=== PATIENT | female | born 1985 | race American Indian/Alaskan Native ===

== ENCOUNTER 2017-01-24 18:05 | Emergency (ER) | payer MEDICAID ==
[2017-01-24 19:23] LABS: Basophils % (Auto) 0.5 % (0.0-1.8); Eosinophils % (Auto) 1.7 % (0.0-4.3); Hematocrit 41.7 % (30.3-42.9); Hemoglobin 13.9 gm/dl (10.1-14.3); Mean Corpuscular HGB Conc 33 % (30-34); Mean Corpuscular Hemoglobin 30 pg (28-32); Mean Corpuscular Volume 91 fl (79-97); Platelet Count 284 K/mm3 (140-440); Red Blood Count 4.57 M/mm3 (3.65-5.03); Red Cell Distribution Width 13.9 % (13.2-15.2); White Blood Count 12.3 K/mm3 (4.5-11.0)
[2017-01-24 19:43] LABS: Alanine Aminotransferase 37 units/L (7-56); Albumin 4.4 g/dL (3.9-5); Albumin/Globulin Ratio 1.3 %; Alkaline Phosphatase 74 units/L (35-129); Amylase 77 units/L (27-131); Anion Gap 18 mmol/L; Blood Urea Nitrogen 12 mg/dL (7-17); Carbon Dioxide 23 mmol/L (22-30); Chloride 98.9 mmol/L (98-107); Glucose 91 mg/dL (65-100); Lipase 23 units/L (13-60); Sodium 136 mmol/L (137-145); Total Protein 7.7 g/dL (6.3-8.2)
[2017-01-24 20:22] LABS: Bacteria,Urine 1+ /HPF (Negative); Bilirubin,Urine NEG (Negative); Blood,Urine MOD (Negative); Ketones,Urine NEG (Negative); Leukocyte Esterase,Urine TR (Negative); Mucus,Urine FEW /HPF; Nitrite,Urine NEG (Negative); Protein,Urine <15 mg/dL mg/dL (Negative); Urobilinogen,Urine < 2.0 mg/dL (<2.0)
--- NOTE | 2017-01-25 00:22 | Ultrasound Report ---
FINAL REPORT EXAM: US OB \T\lt; = 14 WEEKS FETUS HISTORY: abd pain, preg COMPARISON: None available. TECHNIQUE: Several real-time grayscale and color Doppler images were obtained. Transabdominal and transvaginal exam. FINDINGS: The uterus measures 8.1 x 4.4 x 5.8 centimeters. Endometrial stripe measures 12 millimeters. No IUP or adnexal masses are demonstrated. Left ovary is not visualized. Right ovary measures 3.4 x 2.5 x 2.7 centimeters. There is a complex cyst in the right ovary measuring 1.6 x 1.6 x 1.4 centimeters which may reflect corpus luteum. There is gross vascular flow to the right ovary. Trace fluid in the pelvis. IMPRESSION: No IUP or adnexal masses are demonstrated. Correlation with serial beta HCGs and followup exam is suggested. Complex cyst in the right ovary measuring 1.5 centimeters which may reflect corpus luteum. Left ovary is not visualized.
--- NOTE | 2017-01-25 02:31 | Emergency Department Report ---
ED Female HPI - General Chief complaint: Abdominal Pain Stated complaint: LEFT SIDE ABD PAIN/POS HOME TEST Time Seen by Provider: 01/25/17 01:17 Source: patient Mode of arrival: Ambulatory Limitations: No Limitations - History of Present Illness Initial comments: 31-year-old female with a past medical history of recent ectopic 6 months ago presents to the hospital with left lower quadrant abdominal pain. Patient had a home test that was positive. The last 2 days she has had intermittent dull aching pain rated 4/10 intensity without aggravating or alleviating factors. No complaints of nausea, vomiting, dysuria , fever, or vaginal bleeding. Patient does not have a [facility] doctor currently. Her ectopic 6 months ago was treated with methotrexate and no surgery was performed. - Related Data Previous Rx's Medication Instructions Recorded Last Taken Type Nitrofurantoin Gaston/M-Cryst 100 mg PO Q12HR #14 capsule 01/25/17 Unknown Rx [Macrobid CAP] Allergies Allergy/AdvReac Type Severity Reaction Status Date / Time No Known Allergies Allergy Unverified 01/24/17 18:10 ED Review of Systems ROS: Stated complaint: LEFT SIDE ABD PAIN/POS HOME TEST Other details as noted in HPI Comment: All other systems reviewed and negative Other: Constitutional: No fevers chills or weight loss Eyes: No eye pain visual changes or discharge ENT: No ear pain or throat pain Neck: Denies pain Respiratory: Denies cough wheezing shortness of breath Cardiovascular: Denies chest pain, palpitations, syncope GI: Denies nausea, vomiting, diarrhea, constipation : Denies dysuria Musculoskeletal: Denies back pain Skin: Denies rash, lesions, erythema Neurologic: Denies headache, numbness, weakness Psychiatric: Denies suicidal ideation, hallucinations ED Past Medical Hx - Past Medical History Previous Medical History?: Yes Additional medical history: ectopic - Surgical History Past Surgical History?: No - Social History Smoking Status: Former Smoker Substance Use Type: Alcohol - Medications Home Medications: Home Medications Medication Instructions Recorded Confirmed Last Taken Type Nitrofurantoin Gaston/M-Cryst 100 mg PO Q12HR #14 capsule 01/25/17 Unknown Rx [Macrobid CAP] ED Physical Exam - General Limitations: No Limitations - Other Other exam information: General: No limitations, patient is alert in no acute distress Head exam: Atraumatic, normocephalic Eyes exam: Normal appearance ENT: Moist mucous membrane, normal oropharynx Neck exam: Normal inspection, full range of motion Respiratory exam: Clear to auscultation bilateral, no wheezes, rales, crackles Cardiovascular: Normal rate and rhythm, normal heart sounds Abdomen: Soft, nondistended, and nontender, with normal bowel sounds, no rebound, or guarding Extremity: Full range of motion normal inspection no deformity Back: Normal Inspection, full range of motion, no tenderness Neurologic: Alert, oriented x3, cranial nerves intact, no motor or sensory deficit Psychiatric: normal affect, normal mood Skin: Warm, dry, intact ED Course Vital Signs 01/24/17 01/25/17 01/25/17 18:10 00:52 00:54 Temperature 98.2 F Pulse Rate 59 L 59 L Respiratory 18 19 Rate Blood Pressure 126/78 110/65 O2 Sat by Pulse 100 91 100 Oximetry 01/25/17 01/25/17 00:56 01:05 Temperature Pulse Rate 61 Respiratory 18 Rate Blood Pressure 110/65 O2 Sat by Pulse 99 99 Oximetry - Reevaluation(s) Reevaluation #1: 01/25/17 02:29 Patient declined offer for pain medication - Consultations Consultation #1: 01/25/17 02:[address] Vance. Agrees a repeat hCG in 2 days. Recommend to call the office today to initiate follow-up care ED Medical Decision Making - Lab Data Result diagrams: 01/24/17 19:03 01/24/17 19:03 Lab Results 01/24/17 01/24/17 01/24/17 Range/Units 19:03 19:03 19:03 WBC 12.3 H (4.5-11.0) K/mm3 RBC 4.57 (3.65-5.03) M/mm3 Hgb 13.9 (10.1-14.3) gm/dl Hct 41.7 (30.3-42.9) % MCV 91 (79-97) fl MCH 30 (28-32) pg MCHC 33 (30-34) % RDW 13.9 (13.2-15.2) % Plt Count 284 (140-440) K/mm3 Lymph % (Auto) 25.7 (13.4-35.0) % Gaston % (Auto) 6.9 (0.0-7.3) % Eos % (Auto) 1.7 (0.0-4.3) % Baso % (Auto) 0.5 (0.0-1.8) % Lymph # 3.2 (1.2-5.4) K/mm3 Gaston # 0.8 (0.0-0.8) K/mm3 Eos # 0.2 (0.0-0.4) K/mm3 Baso # 0.1 (0.0-0.1) K/mm3 Seg Neutrophils % 65.2 (40.0-70.0) % Seg Neutrophils # 8.0 H (1.8-7.7) K/mm3 Sodium 136 L (137-145) mmol/L Potassium 4.0 (3.6-5.0) mmol/L Chloride 98.9 (98-107) mmol/L Carbon Dioxide 23 (22-30) mmol/L Anion Gap 18 mmol/L BUN 12 (7-17) mg/dL Creatinine 0.8 (0.7-1.2) mg/dL Estimated GFR > 60 ml/min BUN/Creatinine Ratio 15.00 % Glucose 91 (65-100) mg/dL Calcium 9.0 (8.4-10.2) mg/dL Total Bilirubin 0.20 (0.1-1.2) mg/dL AST 22 (5-40) units/L ALT 37 (7-56) units/L Alkaline Phosphatase 74 (35-129) units/L Total Protein 7.7 (6.3-8.2) g/dL Albumin 4.4 (3.9-5) g/dL Albumin/Globulin Ratio 1.3 % Amylase 77 (27-131) units/L Lipase 23 (13-60) units/L HCG, Qual (Negative) HCG, Quant 75.67 H (0-4) mIU/mL Urine Color (Yellow) Urine Turbidity (Clear) Urine pH (5.0-7.0) Ur Specific Godley (1.003-1.030) Urine Protein (Negative) mg/dL Urine Glucose (UA) (Negative) mg/dL Urine Ketones (Negative) mg/dL Urine Blood (Negative) Urine Nitrite (Negative) Urine Bilirubin (Negative) Urine Urobilinogen (<2.0) mg/dL Ur Leukocyte Esterase (Negative) Urine WBC (Auto) (0.0-6.0) /HPF Urine RBC (Auto) (0.0-6.0) /HPF U Epithel Cells (Auto) (0-13.0) /HPF Urine Bacteria (Auto) (Negative) /HPF Urine Mucus /HPF 01/24/17 01/24/17 Range/Units 19:03 20:01 WBC (4.5-11.0) K/mm3 RBC (3.65-5.03) M/mm3 Hgb (10.1-14.3) gm/dl Hct (30.3-42.9) % MCV (79-97) fl MCH (28-32) pg MCHC (30-34) % RDW (13.2-15.2) % Plt Count (140-440) K/mm3 Lymph % (Auto) (13.4-35.0) % Gaston % (Auto) (0.0-7.3) % Eos % (Auto) (0.0-4.3) % Baso % (Auto) (0.0-1.8) % Lymph # (1.2-5.4) K/mm3 Gaston # (0.0-0.8) K/mm3 Eos # (0.0-0.4) K/mm3 Baso # (0.0-0.1) K/mm3 Seg Neutrophils % (40.0-70.0) % Seg Neutrophils # (1.8-7.7) K/mm3 Sodium (137-145) mmol/L Potassium (3.6-5.0) mmol/L Chloride (98-107) mmol/L Carbon Dioxide (22-30) mmol/L Anion Gap mmol/L BUN (7-17) mg/dL Creatinine (0.7-1.2) mg/dL Estimated GFR ml/min BUN/Creatinine Ratio % Glucose (65-100) mg/dL Calcium (8.4-10.2) mg/dL Total Bilirubin (0.1-1.2) mg/dL AST (5-40) units/L ALT (7-56) units/L Alkaline Phosphatase (35-129) units/L Total Protein (6.3-8.2) g/dL Albumin (3.9-5) g/dL Albumin/Globulin Ratio % Amylase (27-131) units/L Lipase (13-60) units/L HCG, Qual Positive (Negative) HCG, Quant (0-4) mIU/mL Urine Color Yellow (Yellow) Urine Turbidity Slightly-cloudy (Clear) Urine pH 6.0 (5.0-7.0) Ur Specific Godley 1.019 (1.003-1.030) Urine Protein <15 mg/dl (Negative) mg/dL Urine Glucose (UA) Neg (Negative) mg/dL Urine Ketones Neg (Negative) mg/dL Urine Blood Mod (Negative) Urine Nitrite Neg (Negative) Urine Bilirubin Neg (Negative) Urine Urobilinogen < 2.0 (<2.0) mg/dL Ur Leukocyte Esterase Tr (Negative) Urine WBC (Auto) 9.0 H (0.0-6.0) /HPF Urine RBC (Auto) 4.0 (0.0-6.0) /HPF U Epithel Cells (Auto) 14.0 H (0-13.0) /HPF Urine Bacteria (Auto) 1+ (Negative) /HPF Urine Mucus Few /HPF - Radiology Data Radiology results: report reviewed (transvaginal/pelvic ultrasound: No IUP or adnexal masses. Complex cyst in the right ovary measuring 1.5 cm likely corpus luteum cyst) - Medical Decision Making At this time no IUP has been identified however, beta hCG is only 75. I explained to patient that she will need follow-up beta hCG in 2 days to determine whether or not she is having a miscarriage or groin . Ectopic cannot be ruled out until IUP identified on ultrasound - Differential Diagnosis ectopic, miscarriage, early Critical Care Time: No Critical care attestation.: If time is entered above; I have spent that time in minutes in the direct care of this critically ill patient, excluding procedure time. ED Disposition Clinical Impression: Early stage of , Intermittent left lower quadrant abdominal pain, Urine WBC increased Disposition: DISCHARGED TO HOME OR SELFCARE Is pt being admited?: No Does the pt Need Aspirin: No Condition: Stable Instructions: Ectopic (ED), (ED), Urinary Tract Infection in Women (ED) Additional Instructions: Today beta hCG level is only 75.6. You will need a repeat in 2 days (January 26) to determine if this level is increasing or decreasing. In a normal this level should double in 2 days and in a miscarriage this level will continue to decrease. Follow up here or with [facility] [facility] in 2 days for repeat blood work. Call the [employer] doctor office today to establish follow-up care. You have been provided a copy of the ultrasound report and lab tests from today. You have been provided ectopic (cant be ruled out unless we see the baby on ultrasoun) and discharge instructions. Please return if symptoms worsen as indicated on these discharge papers. Prescriptions: Nitrofurantoin Gaston/M-Cryst [Macrobid CAP] 100 mg PO Q12HR #14 capsule Referrals: [facility] [Provider Group] - [place] (call today ) Time of Disposition: 02:33
[2017-01-25 03:22] VITALS: BP 110/62
== END 2017-01-25 03:00 | disposition home or self-care (01) ==
LOC: ED 18:05
DX: O26.899 Other specified pregnancy related conditions, unspecified trimester (principal); R10.32 Left lower quadrant pain; R82.99 Other abnormal findings in urine; O99.330 Smoking (tobacco) complicating pregnancy, unspecified trimester
CPT/HCPCS: 36415; 76801; 76817; 80053; 81001; 82150; 83690; 84702; 84703; 85025